=== PATIENT | male | born 1975 | race Caucasian/White ===

== ENCOUNTER → 2021-01-13 | Day surgery (SDC) | payer OTHER ==
[~2021-01-13] VITALS: Ht 175.3 cm; Wt 156.9 kg
[~2021-01-13] MED LIST: ALFUZOSIN HCL E10 MG PO; ARTHRITIS PAIN100 GM TOP; ASPIRIN EC81 MG PO; CARVEDILOL6.25 MG PO; CETIRIZINE HCL10 MG PO; COZAAR 25MG TAB25 MG PO; CYCLOBENZAPRINE10 MG PO; D3-501250 MCG PO; GLIPIZIDE ER5 MG PO; GLUCOPHAGE 500500 MG PO; GLUCOTROL XL 22.5 MG PO; INDERAL TAB 1010 MG PO; MELOXICAM15 MG PO; PROTONIX 40 MG40 M1 PO
== END | disposition home or self-care (01) ==
LOC: OR 08:43
DX: N35.919 Unspecified urethral stricture, male, unspecified site (principal); E78.00 Pure hypercholesterolemia, unspecified; I10 Essential (primary) hypertension; G47.30 Sleep apnea, unspecified; E11.9 Type 2 diabetes mellitus without complications; Z87.891 Personal history of nicotine dependence; Z87.442 Personal history of urinary calculi; Z79.82 Long term (current) use of aspirin; Z79.84 Long term (current) use of oral hypoglycemic drugs; Z79.899 Other long term (current) drug therapy
CPT/HCPCS: 82962; J7040

== ENCOUNTER 2022-03-31 15:37 | Emergency (ER) | payer OTHER ==
[2022-03-31 18:29] LABS: HEMOGLOBIN 16.1 gm/dl (14.0-17.5); RED BLOOD COUNT 5.39 M/UL (4.20-5.50); WHITE BLOOD COUNT 4.1 K/UL (4.5-11.0)
[2022-03-31 18:53] LABS: BUN/CREATININE RATIO 10 (0-10)
[2022-03-31] MEDS ORDERED: MECLIZINE HCL25 MG PO (20:43)
[2022-03-31] MEDS ORDERED: ONDANSETRON ODT4 MG SL (20:43)
== END 2022-03-31 21:25 | disposition home or self-care (01) ==
LOC: ER1 15:37
PROVIDERS: Physician Assistant
DX: U07.1 COVID-19 (principal); J40 Bronchitis, not specified as acute or chronic; R10.31 Right lower quadrant pain; R42 Dizziness and giddiness; T37.5X5A Adverse effect of antiviral drugs, initial encounter; R10.813 Right lower quadrant abdominal tenderness; E11.9 Type 2 diabetes mellitus without complications; I10 Essential (primary) hypertension; Z90.49 Acquired absence of other specified parts of digestive tract
CPT/HCPCS: 71045; 80053; 81001; 83690; 85025; 96374; 99284; J2405; M0222; Q9967